=== PATIENT | male | born 2000 | race Two or more races ===

== ENCOUNTER 2025-01-30 09:03 | Emergency (ER) | payer OTHER ==
[~2025-01-30] VITALS: Ht 167.6 cm; Wt 73.9 kg
[2025-01-30 11:00] VITALS: BP 118/88; O2SAT 99
== END 2025-01-30 15:39 | disposition home or self-care (01) ==
LOC: ER 09:03
DX: G89.11 Acute pain due to trauma (principal); M79.641 Pain in right hand; M79.644 Pain in right finger(s)